=== PATIENT | male | born 1960 | race African-American/Black ===

== ENCOUNTER 2018-01-04 07:20 | Emergency (ER) | payer BC ==
[~2018-01-04] VITALS: Ht 162.6 cm; Wt 88.6 kg
[~2018-01-04 07:20] MED LIST: LAMISIL250 M1 PO; NORCO 325 MG-51 TAB PO; TERBINAFINE PO
[2018-01-04 07:25] VITALS: TEMP 98.6
[2018-01-04] MEDS ORDERED: NORCO 325 MG-51 TAB PO (08:38)
[2018-01-04] MEDS ORDERED: NAPROXEN 3375 MG/TAB PO (09:02)
[2018-01-04 09:05] VITALS: BP 144/111; PULSE 68
== END 2018-01-04 09:29 | disposition home or self-care (01) ==
LOC: COL.ER 07:20
DX: S83.91XA Sprain of unspecified site of right knee, initial encounter (principal); X50.0XXA Overexertion from strenuous movement or load, initial encounter
CPT/HCPCS: J1885; L1846; Q4041

== ENCOUNTER 2019-11-14 09:58 | Emergency (ER) | payer BC ==
[~2019-11-14] VITALS: Ht 172.7 cm; Wt 100.0 kg
[~2019-11-14 09:58] MED LIST changes: +NAPROXEN 3375 MG/TAB PO
[2019-11-14 10:00] VITALS: TEMP 97.7
[2019-11-14 10:22] LABS: BASO % 0.3 % (0.0-2.0); EOS # 0.2 (0.0-0.7); EOS % 1.4 % (0-4.0); HEMATOCRIT 42.5 % (42.0-52.0); HEMOGLOBIN 14.9 g/dl (13.5-18.0); LYMPH % 19.4 % (20.0-51.0); MEAN CELL VOLUME 85 fl (80.0-100.0); MEAN CORPUSCULAR HEMOGLOBIN 30 pg (27.0-31.0); MEAN CORPUSCULAR HGB CONC 35 g/dl (33.0-37.0); MEAN PLATELET VOLUME 10.5 fl (7.4-10.4); MONO # 1.2 (0.1-0.6); MONO % 11.6 % (1.7-9.3); PLATELET COUNT 180 K/mm3 (130-400); REDCELL DISTRIBUTION WIDTH-CV 13.2 % (11.5-14.5)
[2019-11-14 10:35] LABS: C-REACTIVE PROTEIN 3.4 mg/dL (0.0-0.9); CALCIUM 9.3 mg/dL (8.4-10.2); CREATININE, serum 0.86 (0.66-1.25); POTASSIUM 3.6 mmol/L (3.4-5.0)
[2019-11-14 12:03] VITALS: BP 158/92; PULSE 76
[2019-11-14 12:11] LABS: SYNOVIAL FL. MONONUCLEAR 12.9 % (0-75); SYNOVIAL FLUID RBC 2000 /mm3 (0-0); SYNOVIAL FLUID WBC 32570 /mm3 (200-600)
[2019-11-14] MEDS ORDERED: INDOCIN50 MG PO (12:16)
[2019-11-14] MEDS ORDERED: NORCO 325 MG-51 TAB PO (12:16)
[2019-11-14 12:39] LABS: SYNOVIAL FLUID APPEARANCE HAZY; SYNOVIAL FLUID COLOR YELLOW
== END 2019-11-14 12:25 | disposition home or self-care (01) ==
LOC: COL.ER 09:58
PROVIDERS: Emergency Medicine
DX: M17.11 Unilateral primary osteoarthritis, right knee (principal); I10 Essential (primary) hypertension
CPT/HCPCS: J1885; J7030